=== PATIENT | female | born 1955 | race Caucasian/White ===

== ENCOUNTER → 2017-10-09 | Outpatient (CLI) | payer OTHER ==
[~2017-10-09] MED LIST: ACETAMINOPHEN-1 EAC1 PO; ALLEGRA ALLERG180 MG PO; HYDROCHLOROTH12.5 M1 PO; LISINOPRIL10 MG PO; NABUMETONE 750750 M1 PO; NORFLEX100 MG PO; OSTERA TABLET1 EAC1 PO; ROBAXIN 750 MG750 M1 PO
[2017-10-09 15:46] LABS: ABSOLUTE EOSINOPHILS 0.1 thou/uL (0.0-0.7); ABSOLUTE LYMPHOCYTES 3.4 thou/uL (0.8-5.3); ABSOLUTE MONOCYTES 0.8 thou/uL (0.0-1.2); BASOPHILS 0.3 %; HEMATOCRIT 44.5 % (37.0-47.0); HEMOGLOBIN 14.7 gm/dL (12.0-15.0); LYMPHOCYTES 27.7 %; MCH 30.1 pg (26.0-34.0); MCHC 33.1 g/dL (28.0-37.0); MCV 90.8 fL (80.0-100.0); MONOCYTES 6.4 %; NUCLEATED RBCS 0 /100WBC; PLATELET COUNT* 327 thou/uL (150-400); POLYS 64.6 %; RBC 4.89 mil/uL (4.20-5.00); RDW-CV 13.8 % (10.5-14.5); WBC 12.4 thou/uL (4.0-11.0)
[2017-10-09 16:03] LABS: ALBUMIN 3.6 g/dL (3.4-5.0); CALCIUM 8.9 mg/dL (8.5-10.1); CREATININE 0.9 mg/dL (0.6-1.3); POTASSIUM 4.1 mmol/L (3.5-5.1); TOTAL BILIRUBIN 0.2 mg/dL (<0.1-1.0); TOTAL PROTEIN 6.8 g/dL (6.4-8.2)
== END ==
LOC: M.LAB 15:26
PROVIDERS: Specialist
DX: Z01.818 Encounter for other preprocedural examination (principal); I10 Essential (primary) hypertension; N95.0 Postmenopausal bleeding

== ENCOUNTER 2017-11-08 12:23 | Emergency (ER) | payer OTHER ==
[~2017-11-08] VITALS: Ht 162.6 cm; Wt 71.7 kg
[2017-11-08] MEDS ORDERED: LISINOPRIL10 MG PO (12:36)
[2017-11-08] MEDS ORDERED: ALLEGRA ALLERG180 MG PO (12:36)
[2017-11-08] MEDS ORDERED: OSTERA TABLET1 EAC1 PO (12:36)
[2017-11-08] MEDS ORDERED: HYDROCHLOROTH12.5 M1 PO (12:36)
[2017-11-08] MEDS ORDERED: NABUMETONE 750750 M1 PO (12:37)
[2017-11-08] MEDS ORDERED: NORFLEX100 MG PO (12:37)
[2017-11-08] MEDS ORDERED: ROBAXIN 750 MG750 M1 PO (13:42)
[2017-11-08] MEDS ORDERED: ACETAMINOPHEN-1 EAC1 PO (13:42)
[2017-11-08 14:01] VITALS: BP 185/77
--- NOTE | 2017-11-09 14:47 | EKG ---
[place] [address] ELECTROCARDIOGRAM REPORT Name: JENNIFFER SIMPSON Room: [facility]#: [id number] Admission: 11/08/17 Attend Phys: Discharge: 11/08/17 Date of : 57 Report #: [id number] THIS REPORT FOR: //name// [facility] ED Test Date: 2017-11-08 Test Time: 12:57:40 Pat Name: JENNIFFER SIMPSON Department: Room: Gender: F [employer]: HUSSAIN : 1955 Requested By: Miracle Isbell Order Number: [id number] MD: Jono Talavera Measurements Intervals [place] Rate: 88 P: 70 VA: 163 QRS: 41 QRSD: 85 T: 46 QT: 362 QTc: 438 Interpretive Statements Sinus rhythm Low voltage, precordial leads Anteroseptal infarct, old possible No previous ECG available for comparison Electronically Signed On 11-09-2017 14:46:45 CDT by Jono Talavera [email or web address] <ELECTRONICALLY SIGNED> By: Jono Talavera MD, [facility] 11/09/17 1446 [id number] Jono Talavera MD, FACC /EPI
== END 2017-11-08 14:03 | disposition home or self-care (01) ==
LOC: M.ERS 12:23
DX: S29.012A Strain of muscle and tendon of back wall of thorax, initial encounter (principal); Z90.49 Acquired absence of other specified parts of digestive tract; Z88.1 Allergy status to other antibiotic agents; X58.XXXA Exposure to other specified factors, initial encounter; Y93.89 Activity, other specified; Y92.89 Other specified places as the place of occurrence of the external cause; Y99.8 Other external cause status

== ENCOUNTER 2019-01-17 14:04 | Emergency (ER) | payer OTHER ==
[~2019-01-17] VITALS: Ht 162.6 cm; Wt 74.8 kg
[2019-01-17 14:15] VITALS: BP 196/89
[2019-01-17] MEDS ORDERED: COZAAR 25 MG TA25 M1 PO (14:18)
[2019-01-17] MEDS ORDERED: CIPROFLOXIN HC2.5 M1 OTIC (14:30)
== END 2019-01-17 14:39 | disposition home or self-care (01) ==
LOC: M.ERS 14:04
DX: H10.9 Unspecified conjunctivitis (principal); I10 Essential (primary) hypertension; Z88.1 Allergy status to other antibiotic agents; Z88.8 Allergy status to other drugs, medicaments and biological substances; Z90.49 Acquired absence of other specified parts of digestive tract

== ENCOUNTER 2019-05-09 13:08 | Emergency (ER) | payer OTHER ==
[~2019-05-09] VITALS: Ht 162.6 cm; Wt 72.6 kg
[~2019-05-09 13:08] MED LIST changes: +CIPROFLOXIN HC2.5 M1 OTIC; +COZAAR 25 MG TA25 M1 PO
[2019-05-09] MEDS ORDERED: SERTRALINE HCL50 MG PO (13:23)
[2019-05-09] MEDS ORDERED: PROAIR HFA8.5 GM INH (13:45)
[2019-05-09] MEDS ORDERED: PREDNISONE 20 M20 M1 PO (13:45)
[2019-05-09] MEDS ORDERED: ZPAK PO (13:45)
[2019-05-09 14:00] VITALS: BP 161/80
== END 2019-05-09 14:03 | disposition home or self-care (01) ==
LOC: M.ERS 13:08
DX: J06.9 Acute upper respiratory infection, unspecified (principal); I10 Essential (primary) hypertension; F17.210 Nicotine dependence, cigarettes, uncomplicated; Z88.1 Allergy status to other antibiotic agents; Z88.8 Allergy status to other drugs, medicaments and biological substances; Z90.49 Acquired absence of other specified parts of digestive tract